=== PATIENT | male | born 1965 | race Caucasian/White ===

== ENCOUNTER 2017-01-13 12:58 | Emergency (ER) | payer SELFPAY ==
[~2017-01-13 12:58] MED LIST: ASPI81TA82 PO; CLAR10TA7 PO; FIORIC PO; HYDR-3129 PO; NAPR220T95 PO; PREV30CA36 PO; TYLE500T PO; ZOFR4TAB3 SL
[2017-01-13 13:01] VITALS: BP 165/101; PULSE 76; RESP 20; TEMP 98.7; O2SAT 95
[2017-01-13] MEDS ORDERED: VENTAER INH (13:16)
[2017-01-13] MEDS ORDERED: BENZ100 PO (13:16)
[2017-01-13] MEDS ORDERED: GUAI100S5 PO (13:16)
--- NOTE | 2017-01-13 13:28 | PD ---
HPI Chief Complaint: Cold / Flu Symptoms Time Seen by Provider: 13:11 Travel History International Travel<30 days: No Contact w/Intl Traveler<30days: No Traveled to known affect area: No History of Present Illness HPI 51-year-old male presents to the emergency room for evaluation of nonproductive cough for the past 2.5 days. Patient reports night sweats but has not had any objective fevers. States cough was initially productive of green sputum but has gone to clear. He has associated nasal congestion and sore throat. States when he coughs his head and chest hurt. He has been taking [id number] Sudafed without any relief in symptoms. No sick contacts. He has no chronic medical conditions. Takes no daily medications. PFSH Past Medical History Cerebrovascular Accident: Yes (TIA) Diminished Hearing: No GERD: Yes Tetanus Vaccination: < 5 Years Influenza Vaccination: No Past Surgical History Other Surgery: Yes (JORGE LUIS FILTER) Social History Alcohol Use: Yes (Occ.) Tobacco Use: No Substance Use: No Allergies-Medications (Allergen,Severity, Reaction): Coded Allergies: No Known Allergies (Unverified , 01/13/17) Reported Meds & Prescriptions Reported Meds & Active Scripts Active Guaifenesin-Codeine Liq 100-10 Mg/5 Ml Soln 5 Ml PO Q6H PRN Ventolin Hfa 18 GM Inh (Albuterol Sulfate) 90 Mcg/Act Aer 2 Puff INH Q6H PRN Tessalon Perles (Benzonatate) 100 Mg Cap 100 Mg PO TID PRN Review of Systems Except as stated in HPI: all other systems reviewed are Neg Physical Exam Narrative GENERAL: Well-nourished, well-developed male in no acute distress. Afebrile. Ambulatory. SKIN: Focused skin assessment warm/dry. HEAD: Normocephalic. EYES: No scleral icterus. No injection or drainage. ENT: Mucosa pink and moist. No erythema or exudates. No uvular edema. No uvular , palatal, or tonsillar deviation. Airway patent. Nasal turbinates appear normal without nasal blood, purulent drainage or septal hematoma. EARS: Bilateral pinnae and external canals appear within normal limits. Bilateral tympanic membranes without erythema, dullness or perforation. NECK: Supple, trachea midline. No JVD or lymphadenopathy. CARDIOVASCULAR: Regular rate and rhythm without murmurs, gallops, or rubs. RESPIRATORY: Breath sounds equal bilaterally. No accessory muscle use. No crackles, rales, wheezes, or rhonchi. Data Data Last Documented VS Vital Signs Date Time Temp Pulse Resp B/P (MAP) Pulse Ox O2 Delivery O2 Flow Rate FiO2 01/13/17 13:10 18 01/13/17 13:01 98.7 76 165/101 (122) 95 MDM Medical Decision Making Medical Screen Exam Complete: Yes Emergency Medical Condition: Yes Medical Record Reviewed: Yes Differential Diagnosis Bronchitis, pneumonia unlikely, upper respiratory infection Narrative Course 51-year-old male presents to the emergency room for evaluation of mild reactive cough for the past 2.5 days. He is afebrile and well-appearing in the emergency room. No objective fevers. Physical exam is unremarkable. No evidence of bacterial infection and bilateral ears or throat. Patient is coughing frequently but it is nonproductive. Lung sounds clear and equal bilaterally. No increased work of breathing. He is requesting antibiotics. Given history and physical exam, I see no indication for antibiotics at this time. He was offered chest x-ray to evaluate for pneumonia but became cantankerous when he was told that he would not be receiving antibiotics and left before x-ray could be taken. He was offered prescriptions for Tessalon Perles, albuterol inhaler, and guaifenesin with codeine but left without prescriptions. Diagnosis Primary Impression: Bronchitis Patient Instructions: General Instructions Departure Forms: Tests/Procedures Scripts Guaifenesin-Codeine Liq (Guaifenesin-Codeine Liq) 100-10 Mg/5 Ml Soln 5 ML PO Q6H Y for COUGH, #1 BOTTLE 0 Refills Prov: Lionel Pan MD 01/13/17 Albuterol 18 GM Inh (Ventolin Hfa 18 GM Inh) 90 Mcg/Act Aer 2 PUFF INH Q6H Y for SHORTNESS OF BREATH, #1 INHALER 0 Refills Prov: Lionel Pan MD 01/13/17 Benzonatate (Tessalon Perles) 100 Mg Cap 100 MG PO TID Y for COUGH, #21 CAP 0 Refills Prov: Lionel Pan MD 01/13/17 Disposition: 01 DISCHARGE HOME Condition: Stable Jailyn Grimes Jan 13, 2017 13:28
== END 2017-01-13 13:38 | disposition home or self-care (01) ==
LOC: PHEFT 12:58
DX: J40 Bronchitis, not specified as acute or chronic (principal)
CPT/HCPCS: 99281